=== PATIENT | female | born 1950 | race Hispanic/Latino ===

== ENCOUNTER 2024-12-13 05:15 | Observation (INO) | payer MEDICARE, OTHER ==
[~2024-12-13] VITALS: Ht 152.4 cm; Wt 59.9 kg
[~2024-12-13 05:15] MED LIST: AMLODIPINE BESY10 MG PO; CELEBREX200 MG PO; LIPITOR20 MG PO; TRICOR48 MG PO; ULTRAM 50MG50 MG PO
[2024-12-13] MEDS: CELECOXIB 200 MG CAP ONE (05:58)
[2024-12-13] MEDS: DEXAMETHASONE SOD PHOS 10 MG/1 ML VIAL ONE (05:58)
[2024-12-13] MEDS: LACTATED RINGER'S 1,000 ML ONE (05:58)
[2024-12-13] MEDS: GABAPENTIN 300 MG CAP ONE (05:58)
[2024-12-13] MEDS: CEFAZOLIN SODIUM 2 GM ONE (05:59)
[2024-12-13] MEDS ORDERED: PROPOFOL IV EMULSION 10 MG/ML 20 ML VIAL ONE (08:13)
[2024-12-13] MEDS ORDERED: LIDOCAINE HCL 2% LOCAL INJ 5 ML SDV VIAL INJ ONE (08:13)
[2024-12-13] MEDS ORDERED: ROCURONIUM BROMIDE 1 ML IV ONE (08:15)
[2024-12-13] MEDS ORDERED: FENTANYL CITRATE/PF 100MCG/2 ML INJ ONE (08:15)
[2024-12-13] MEDS ORDERED: ONDANSETRON HCL INJ 2MG/ML 2ML 2 MG/ML VIAL ONE (09:09)
[2024-12-13] MEDS ORDERED: DEXAMETHASONE SOD PHOS INJ 4 MG/ML SDV ONE (09:09)
[2024-12-13] MEDS ORDERED: FAMOTIDINE 20 MG/2 ML VIAL IV ONE (09:09)
[2024-12-13] MEDS ORDERED: ACETAMINOPHEN 1000 MG/100 ML 100 ML IV ONE (09:22)
[2024-12-13] MEDS ORDERED: HYDROCODONE/APAP 5MG-325MG TAB PO PRN (10:15)
[2024-12-13] MEDS ORDERED: DIPHENHYDRAMINE HCL INJ 50 MG/ML VIAL IV PRN (10:15)
[2024-12-13] MEDS ORDERED: DOCUSATE SODIUM 100 MG CAP PO PRN (10:15)
[2024-12-13] MEDS: MEPERIDINE HCL INJ 25 MG/ML VIAL ONE (10:43)
[2024-12-13] MEDS: FENTANYL CITRATE/PF 100MCG/2 ML INJ ONE (10:57)
[2024-12-13] MEDS: ONDANSETRON HCL INJ 2MG/ML 2ML 2 MG/ML VIAL IV ONE (11:43)
[2024-12-13] MEDS ORDERED: SEVOFLURANE INHAL SOLN 250 ML PEN BTL ONE (12:45)
[2024-12-13] MEDS ORDERED: TRANEXAMIC ACID 1,000 MG/10 ML ML ONE (12:45)
[2024-12-13] MEDS ORDERED: ASPIRIN81 MG PO (12:55)
[2024-12-13] MEDS: METOCLOPRAMIDE HCL 10 MG/2ML VIAL IV ONE (12:56)
[2024-12-13 18:42] VITALS: BP 114/72; PULSE 80; RESP 17; TEMP 97.4; O2SAT 99
[2024-12-13 20:00] VITALS: BP 125/71; PULSE 71; RESP 18; TEMP 97.7; O2SAT 92
[2024-12-13] MEDS: SODIUM CHLORIDE 0.9% 1000ML 1,000 ML IV SCH (20:15)
[2024-12-13] MEDS: HYDROCODONE/APAP 7.5MG-325MG 1 EA TAB PO PRN (21:37)
[2024-12-13 23:49] VITALS: BP 125/71; PULSE 71; RESP 18; TEMP 97.7; O2SAT 92
[2024-12-14] VITALS (7 sets, daily range): BP systolic 125–146; BP diastolic 54–71; PULSE 66–81; RESP 18–20; TEMP 97.4–98.1; O2SAT 92–100
[2024-12-14 06:07] LABS: HEMATOCRIT 32.5 % (34.2-44.1); HEMOGLOBIN 10.9 g/dL (12.0-16.0)
[2024-12-14] MEDS: ONDANSETRON HCL INJ 2MG/ML 2ML 2 MG/ML VIAL ONE (07:42)
[2024-12-14] MEDS: METOCLOPRAMIDE HCL 10 MG/2ML VIAL ONE (07:42)
[2024-12-14] MEDS: CELECOXIB 100 MG CAP PO SCH (08:44)
[2024-12-14] MEDS: ASPIRIN 325 MG TAB PO SCH (08:44)
[2024-12-14] MEDS ORDERED: ACETAMINOPHEN 1000 MG/100 ML IV PRN (10:15)
== END 2024-12-14 13:34 | disposition home or self-care (01) ==
LOC: OR 05:15 → PACU V 10:08 → MED/SURG2 19:27
PROVIDERS: ADMIT Specialist; ATTEND Specialist
DX: M16.11 Unilateral primary osteoarthritis, right hip (principal); I10 Essential (primary) hypertension; E78.00 Pure hypercholesterolemia, unspecified; Z96.642 Presence of left artificial hip joint; M81.0 Age-related osteoporosis without current pathological fracture; M47.9 Spondylosis, unspecified
CPT/HCPCS: 27130; 36415; 72170; 85014; 85018; 86850; 86900; 94799 ×2; 97110; 97116 ×2; 97161; 97530 ×3; C1713; C1776 ×4; G0378 ×2; J0131; J0171; J0690 ×2; J1100 ×2; J2003; J2175; J2405; J2704; J2765; J2795; J3010; J7030 ×2; J7121